=== PATIENT | female | born 1965 | race Two or more races ===

== ENCOUNTER 2021-10-27 01:06 | Emergency (ER) | payer SELFPAY ==
[2021-10-27 01:11] VITALS: BP 139/79; PULSE 77; RESP 18; TEMP 36.3; O2SAT 100
--- NOTE | 2021-10-27 02:58 | PC.NURSE ---
Patient and her son state she is in so much pain, that she wants to go home. Patient informed of the risks of leaving. Patient a/ox4. Bleeding controlled to wound. Patient requesting medications in waiting room, and wait time dai hewitt is available. Patient informed that unable to give medications in the waiting room and that a wait time is also unable to be given, that the department is full at this time but they are working as fast as they can. Patient and son state they will leave. Patient taken home by her son.
== END 2021-10-27 04:16 | disposition left against medical advice (07) ==
LOC: ANHED 03:26
DX: S99.922A Unspecified injury of left foot, initial encounter (principal)
CPT/HCPCS: 99199

== ENCOUNTER 2022-10-18 09:21 | Emergency (ER) | payer OTHER, SELFPAY ==
[2022-10-18] VITALS (17 sets, daily range): BP systolic 142–147; BP diastolic 83–93; PULSE 64–84; RESP 13–29; TEMP 36.7; O2SAT 98–99
--- NOTE | ~2022-10-18 | CT_ITS ---
EXAMINATION: CT brain wo con DATE: 10/18/2022 12:48 INDICATION: Dizziness TECHNIQUE: Computed tomography (CT) of the head was performed without intravenous contrast. Sagittal and coronal reconstructions were performed. The mA was adjusted according to patient size. Iterative reconstruction technique was employed. The dose-length product was 529.67 mGy-cm. COMPARISON: None FINDINGS: No acute intracranial hemorrhage, acute infarction or abnormal extra axial fluid collection. Ventricl es are normal and symmetric. No mass/mass effect. Moderate mucosal thickening in the paranasal sinuse s. There is also a left otomastoiditis effusion. The orbits are normal. IMPRESSION: 1. No acute intracranial process. 2. Prominent sinus disease and left otomastoiditis effusion. Reviewed, dictated and finalized at location A. CAR OPERATOR
--- NOTE | 2022-10-18 09:28 | ED.GENADULT ---
HPI - General Adult General Chief complaint: Weakness Stated complaint: nausea & weakness Time Seen by Provider: 10/18/22 09:25 History of Present Illness HPI narrative: 56-year-old Mike speaking female with no medical problems presents to the emergency room for evaluation of generalized weakness. Patient was accompanied by her brother who is the guncotton packer. According to family, patient has been experiencing nausea and vomiting for 2 days and accompanied with a generalized weakness. Also reports a headache and body aches. Prior to this patient been experiencing intermittent fevers, cough, sinus congestion and body aches, stating that she presumably had influenza. Patient denies any abdominal pain or diarrhea. Patient presented by EMS, where a liter of fluids and Zofran were administered. Patient denies shortness of breath, difficulty breathing, chest pain, palpitations. Related Data Allergies Allergy/AdvReac Type Severity Reaction Status Date / Time No Known Allergies Allergy Verified 10/27/21 01:13 Review of Systems Review of Systems: CONSTITUTIONAL: Denies fever, chills, or sweats. EYES: Denies visual changes, redness, or discharge. ENT: Denies rhinorrhea, congestion, sore throat, or otalgia. CARDIOVASCULAR: Denies chest pain, palpitations, or edema. RESPIRATORY: Denies cough or dyspnea. GASTROINTESTINAL: Reports nausea vomiting GENITOURINARY: Denies dysuria or hematuria. SKIN: Denies rash or itching. MUSCULOSKELETAL: Denies back pain, joint pain, or myalgia. NEUROLOGIC: Denies headache, numbness, dizziness, or weakness. PSYCHIATRIC: Denies anxiety or depression. Exam Narrative: GENERAL: ill-appearing, well-nourished, no physical limitations HEAD: Normocephalic, atraumatic. EYES: Conjunctivae normal, PERRLA and EOMI. CHEST: Clear to auscultation. No respiratory distress. No wheezes rales or rhonchi. HEART: Regular rate and rhythm. No murmur heard. Normal peripheral pulses. ABDOMEN: Soft, nontender, nondistended, normal active bowel sounds. BACK: No CVA tenderness EXTREMITIES: Normal range of motion. No edema. No clubbing or cyanosis SKIN: Warm, dry, no rash. No noted wounds NEURO: No focal deficits. Alert and oriented x3. MAEW. CN's II-XI intact bilaterally, normal gait PSYCH: Cooperative. Normal mood and affect. Course Vital Signs Vital signs: Vital Signs Temperature 36.7 C 10/18/22 09:21 Pulse Rate 74 10/18/22 09:21 Respiratory Rate 16 10/18/22 09:21 Blood Pressure 145/93 H 10/18/22 09:21 Pulse Oximetry 99 10/18/22 09:21 Oxygen Delivery Room Air 10/18/22 09:21 Temperature 36.7 C 10/18/22 09:21 Pulse Rate 69 10/18/22 09:31 Respiratory Rate 16 10/18/22 09:21 Blood Pressure 145/93 H 10/18/22 09:21 Pulse Oximetry 99 10/18/22 09:21 Oxygen Delivery Room Air 10/18/22 09:21 Medical Decision Making MDM Narrative Medical decision making narrative: 56-year-old female Mike speaking patient who is accompanied by her Uzbek-speaking family presented with 2 days of nausea and vomiting and generalized weakness. Nausea vomiting likely due to a secondary benign cause. Patient did not have any abdominal pain and was having regular bowel movements so SBO is unlikely. Lab work showed no signs of diabetes, electrolytes were normal with no anion gap. Based on history and exam, low suspicion for pancreatitis, appendicitis or any biliary pathology. Patient was given Zofran and a liter of fluids. Patient will be discharged with Zofran. Vital Signs Vital Signs: Vital Signs Temperature 36.7 C 10/18/22 09:21 Pulse Rate 74 10/18/22 09:21 Respiratory Rate 16 10/18/22 09:21 Blood Pressure 145/93 H 10/18/22 09:21 Pulse Oximetry 99 10/18/22 09:21 Oxygen Delivery Room Air 10/18/22 09:21 Temperature 36.7 C 10/18/22 09:21 Pulse Rate 69 10/18/22 09:31 Respiratory Rate 16 10/18/22 09:21 Blood Pressure 145/93 H 10/18/22 09:21 Pulse Oximetry 99 10/18/22
[2022-10-18] MEDS: PANTOPRAZOLE SODIUM IV 40 MG VIAL IV PUSH (09:37)
--- NOTE | 2022-10-18 09:43 | PC.NURSE ---
ems iniated lr continues infusing wide open without difficulty
[2022-10-18 10:00] LABS: Basophils Percent Auto 0.4 % (0.2-1.2); Eosinophils Absolute Auto 0.2 K/mm3 (0-0.3); Eosinophils Percent Auto 2.2 % (0-4.4); Hematocrit 36.6 % (37.0-47.0); Hemoglobin 11.3 g/dL (12.0-15.0); Immature Granulocyte Absolute 0.04 K/mm3 (0.00-0.031); Immature Granulocyte Percent A 0.4 % (0-0.5); Lymphocytes Percent Auto 21.2 % (18.3-44.2); Mean Corpuscular HGB Conc 30.9 g/dl (32-36); Mean Corpuscular Hemoglobin 19.3 pg (26-34); Mean Corpuscular Volume 62.7 fl (80-100); Monocytes Absolute Auto 0.6 K/mm3 (0.1-0.6); Monocytes Percent Auto 6.1 % (2.6-8.5); Neutrophils Absolute Auto 6.6 K/mm3 (1.3-6.7); Neutrophils Percent Auto 69.7 % (45.5-73.1); Platelet Count Result 272 k/mm3 (150-375); Red Blood Count 5.84 M/mm3 (4.2-5.4); Red Cell Distribution Width 17.9 % (11.5-14.5); White Blood Count 9.4 K/mm3 (4.5-10.0)
[2022-10-18] MEDS: KETOROLAC 30 MG/ML VIAL (*BKC) IV PUSH (10:09)
[2022-10-18 10:14] LABS: Alanine Aminotransferase 22 U/L (6-35); Albumin Level 4.5 g/dL (3.5-5.1); Alkaline Phosphatase 73 U/L (38-126); Anion Gap 7 mmol/L (8-16); Aspartate Amino Transferase 22 U/L (14-36); Bilirubin,Total 0.6 mg/dL (0.2-1.3); Blood Urea Nitrogen 12 mg/dL (7-17); Calcium 8.6 mg/dL (8.4-10.2); Carbon Dioxide 26 mmol/L (22-30); Chloride 107 mmol/L (98-107); Estimated Glomerular Filt Rate > 60; Glucose 107 mg/dL (65-110); Lactic Acid Reflex 1.6 mmol/L (0.7-2.0); Lipase 65 U/L (23-300); Potassium 3.7 mmol/L (3.4-5.0); Sodium 140 mmol/L (137-145)
[2022-10-18 10:32] LABS: Influenza A QL RT-PCR Negative (Negative); Influenza B QL RT-PCR Negative (Negative); RSV RNA, RT-PCR Negative (Negative); SARS-CoV-2 RNA PCR Negative
--- NOTE | 2022-10-18 10:45 | PC.NURSE ---
pt ambulatory to bathroom with slightly unsteady gait.
[2022-10-18 10:59] LABS: Appearance Urine Clear (Clear); Bilirubin Urine Negative (Negative); Blood Urine Negative (Negative); Color Urine Yellow (Yellow); Glucose Urine UA Negative (Negative); Ketones Urine Negative (Negative); Leukocyte Esterase Ur Negative LEU/UL (Negative); Nitrate Urine Negative (Negative); Protein Urine 2+ mg/dL (Negative); Specific Grav Ur 1.015 (1.001-1.035); Urobilinogen Urine 0.2 mg/dL (<2.0); pH Urine 7.5 (5.0-9.0)
[2022-10-18 11:00] LABS: Add Urine Microscopic? YES; Bacteria Urine Trace /hpf; Mucus Urine Rare /lpf; RBC Urine 0-2 /hpf (0-2); Squamous Epithelial Cell Urine Rare /hpf (Few); WBC Urine 0-3 /hpf
[2022-10-18] MEDS: SODIUM CHLORIDE 0.9% IV 1,000 ML 999 ML IV CONT (11:17)
--- NOTE | 2022-10-18 12:00 | PC.NURSE ---
pt ambulatory with minimal assist to bathroom. pt continues to c/o dizziness though gait is much improved.
--- NOTE | 2022-10-18 12:04 | ECG_ITS ---
Measurements Intervals [place] Rate: 68 P: 41 TN: 150 QRS: 64 QRSD: 98 T: 41 QT: 414 QTc: 441 Interpretive Statements SINUS RHYTHM MINOR RIGHT VENTRICULAR CONDUCTION DELAY [RSR (QR) IN V1/V2] WITHIN NORMAL LIMITS NO PREVIOUS ECG AVAILABLE FOR COMPARISON Electronically Signed On 10-19-2022 8:16:18 RING ROLLING MACHINE OPERATOR by Andrea Davila M.D.
[2022-10-18] MEDS: MECLIZINE HCL 25 MG TABLET PO (12:17)
[2022-10-18 12:34] LABS: Troponin I < 0.012 ng/mL (0.000-0.034)
== END 2022-10-18 13:19 | disposition home or self-care (01) ==
PROVIDERS: Emergency Provider Nurse Practitioner Family
DX: R11.10 Vomiting, unspecified (principal); R53.1 Weakness; Z20.822 Contact with and (suspected) exposure to COVID-19
CPT/HCPCS: 36415; 70450; 80053; 81001; 83605; 83690; 84484; 85025; 87637; 93005; 96361; 96374; 96375; 99284; A9270; C9113; J1885; J7030

== ENCOUNTER 2024-03-24 03:27 | Observation (INO) | payer OTHER, SELFPAY ==
[2024-03-24] VITALS (12 sets, daily range): BP systolic 104–175; BP diastolic 62–91; PULSE 62–96; RESP 14–16; TEMP 36.3–37.2; O2SAT 97–99; BMI 26.8
--- NOTE | ~2024-03-24 | MR_ITS ---
MRI of the cervical spine Clinical History: Pain Technique: Axial T2-weighted and gradient images, and sagittal T1-weighted, T2-weighted, and STIR niko ges were acquired. Findings: There is no fracture or subluxation of the cervical spine. Vertebral bodies maintain normal height and alignment. No bone marrow signal abnormality seen. At C2-C3, there is no disc bulge or herniation. No spinal canal stenosis, cord compression, or neural foraminal narrowing. At C3-C4, there is minimal disc osteophyte complex, with minimal flattening the ventral cord. Bilater al neural foramina are preserved. At C4-C5, there is mild disc osteophyte complex, with mild canal stenosis and minimal flattening of t he ventral cord. Bilateral neural foramina are preserved. At C5-C6, there is moderate degenerative disc narrowing. There is mild disc osteophyte complex, with mild canal stenosis but no ly cord compression. There is bilateral neural foraminal narrowing. At C6-C7, there is minimal disc bulge. No ly canal stenosis or cord compression. There is bilatera l neural foraminal narrowing. No abnormal signal seen in the spinal cord. Paravertebral soft tissues are unremarkable. Impression: Mild to moderate degenerative spondylosis, as detailed above. Reviewed, dictated and finalized at location . Impression: Mild to moderate degenerative spondylosis, as detailed above.
--- NOTE | ~2024-03-24 | XR_ITS ---
Portable chest x-ray Comparison: None Clinical History: Weakness Findings: Lungs are clear, without focal consolidation or pleural effusion. Cardiomediastinal silho uette is unremarkable. Bones and soft tissues are unremarkable. Impression: Normal chest. Reviewed, dictated and finalized at location M. Impression: Normal chest.
--- NOTE | ~2024-03-24 | CT_ITS ---
CT ANGIOGRAM NECK AND HEAD History: Left-sided weakness. Technique: Serial spiral axial images through the head and neck were obtained during arterial phase I V injection of 100 cc of Omnipaque 350. 3-D postprocessing and MIP images were then reconstructed on the remote workstation. Dose reduction technique was used on this scan by utilizing automated exposur e control and iterative reconstruction technique. The dose-length product (DLP) was 963.44 mGy-cm. CTA neck findings: Bilateral vertebral arteries are patent. Bilateral common carotid, internal carot id, and external carotid arteries are patent. No large vessel occlusion. No stenosis. No aneurysm. Th e proximal right internal carotid artery demonstrates 0% stenosis relative to the normal distal arter y lumen diameter. The proximal left internal carotid artery demonstrates 0% stenosis relative to the normal distal artery lumen diameter. There is enlargement of the right thyroid lobe. CTA head findings: Distal vertebral arteries, basilar artery, and posterior cervical arteries are pat ent. Distal internal carotid arteries, middle cerebral arteries, and anterior cerebral arteries are p atent. No large vessel occlusion. No stenosis or aneurysm. Impression: No significant vascular abnormality. Enlarged right thyroid lobe nodule. Consider follow-up thyroid ultrasound to assess for nodule. Reviewed, dictated and finalized at location . Impression: No significant vascular abnormality. Enlarged right thyroid lobe nodule. Consider follow-up thyroid ultrasound to as sess for nodule.
--- NOTE | ~2024-03-24 | MR_ITS ---
MRI of the thoracic spine Clinical History: Pain Technique: Axial T2-weighted and gradient images, and sagittal T1-weighted, T2-weighted, and STIR niko ges were acquired. Findings: There is no fracture or subluxation of the thoracic spine. Vertebral bodies maintain normal height and alignment. No bone marrow signal abnormality seen. No disc bulge or herniation seen at any thoracic level. No spinal canal stenosis or cord compression seen. No epidural mass or collection seen. No abnormal signal seen in the spinal cord. Paravertebral soft tissues are unremarkable. Impression: Unremarkable exam. Reviewed, dictated and finalized at location M. Impression: Unremarkable exam.
--- NOTE | ~2024-03-24 | MR_ITS ---
MRI of the lumbar spine Clinical History: Pain Technique: Axial T2-weighted images, and sagittal T1-weighted, T2-weighted, and T2 fat-sat images wer e acquired. Findings: There is straightening of the normal lumbar lordosis. No fracture or subluxation evident. N o suspicious bone marrow signal abnormality seen. At L1-L2 and L2-L3, there is no significant disc bulge or rotation. There is moderate facet arthropat hy levels. No spinal canal stenosis or neural foraminal narrowing at these levels. At L3-L4, there is minimal disc bulge and moderate facet arthropathy. No central canal stenosis or ne ural foraminal narrowing. At L4-L5, there is mild diffuse disc bulge with tiny annular fissure, and moderate to advanced facet arthropathy. No central canal stenosis. There is severe right neural foraminal narrowing. Left neural foramen preserved. At L5-S1, there is mild disc bulge with mild to moderate facet arthropathy. No central canal stenosis . There is mild bilateral neural foraminal narrowing. Paravertebral soft tissues are unremarkable. Impression: Mild degenerative spondylosis overall, worst at L4-L5 with severe right neural foraminal narrowing at this level. Reviewed, dictated and finalized at [facility]. Impression: Mild degenerative spondylosis overall, worst at L4-L5 with severe right neural foraminal narrowing at this level.
--- NOTE | ~2024-03-24 | MR_ITS ---
MRI of the brain Clinical History: Strokelike symptoms Technique: Axial and sagittal T1-weighted images were acquired. These were followed by axial T2-weigh royce, diffusion weighted, gradient, and FLAIR images. Findings: No abnormal signal seen in the brain parenchyma. No acute infarct, intracranial hemorrhage, or mass lesion. Ventricles and some arachnoid spaces are unremarkable. Orbits are unremarkable. There is left mastoid effusion. Right mastoid air cells are clear. Paranasal sinuses are clear. Major intracranial flow vo ids are grossly intact. Sagittal midline structures are intact. IMPRESSION: No acute infarct, intracranial hemorrhage, or mass lesion. Left mastoid effusion. Reviewed, dictated and finalized at location .
--- NOTE | ~2024-03-24 | CT_ITS ---
Non-contrast Head CT History: Left-sided weakness COMPARISON: 10/18/2022 Technique: Axial non-contrast imaging of the brain was performed. Dose reduction technique was used on this scan by utilizing automated exposure control and iterative reconstruction technique. The dose -length product (DLP) was 529.67 mGy-cm. Findings: There is no evidence of intracranial hemorrhage, mass lesion, or acute infarct. Brain par enchyma appears normal. The ventricles and subarachnoid spaces are normal in size. The calvarium ap pears normal. The visualized paranasal sinuses and mastoid air cells are clear. Impression: No significant abnormality seen. Reviewed, dictated and finalized at location . Impression: No significant abnormality seen.
--- NOTE | ~2024-03-24 | US_ITS ---
EXAMINATION: US venous doppler UE DATE: 03/24/2024 20:22 INDICATION: Left upper limb pain. TECHNIQUE: Grayscale ultrasound images without and with compression and Doppler ultrasound images of the left upper extremity veins were obtained. COMPARISON: None. FINDINGS: The visualized portions of the left internal jugular vein, subclavian vein, axillary vein, brachial v eins, basilic vein, cephalic vein, radial vein, and ulnar vein are patent. IMPRESSION: 1. No deep venous thrombosis. Reviewed, dictated and finalized at location E.
--- NOTE | 2024-03-24 03:47 | ECG_ITS ---
SEE SCANNED COPY FOR CONFIRMED REPORT MTDD
[2024-03-24 04:10] LABS: Basophils Percent Auto 0.4 % (0.2-1.2); Eosinophils Absolute Auto 0.2 K/mm3 (0-0.3); Eosinophils Percent Auto 2.4 % (0-4.4); Hematocrit 38.3 % (37.0-47.0); Hemoglobin 11.7 g/dL (12.0-15.0); Immature Granulocyte Absolute 0.01 K/mm3 (0.00-0.031); Immature Granulocyte Percent A 0.1 % (0-0.5); Lymphocytes Absolute Auto 2.19 K/mm3 (0.9-3.2); Lymphocytes Percent Auto 30.7 % (18.3-44.2); Mean Corpuscular HGB Conc 30.5 g/dl (32-36); Mean Corpuscular Hemoglobin 19.1 pg (26-34); Mean Corpuscular Volume 62.7 fl (80-100); Monocytes Absolute Auto 0.6 K/mm3 (0.1-0.6); Monocytes Percent Auto 8.1 % (2.6-8.5); Neutrophils Absolute Auto 4.2 K/mm3 (1.3-6.7); Neutrophils Percent Auto 58.3 % (45.5-73.1); Platelet Count Result 251 k/mm3 (150-375); Red Blood Count 6.11 M/mm3 (4.2-5.4); Red Cell Distribution Width 18.2 % (11.5-14.5); White Blood Count 7.1 K/mm3 (4.5-10.0)
[2024-03-24 04:19] LABS: INR 1.1; Prothrombin Time 14.7 Seconds (11.1-14.7)
[2024-03-24 04:20] LABS: Partial Thromboplastin Time 34.7 Seconds (22.3-36.8)
[2024-03-24 04:22] LABS: Ethanol < 10 mg/dL (<10); Lactic Acid Reflex 0.9 mmol/L (0.7-2.0)
[2024-03-24 04:29] LABS: Platelet Estimate Adequate (Adequate)
[2024-03-24 04:30] LABS: Anisocytosis 1+; Microcytosis 1+ (NORMAL)
[2024-03-24] MEDS: SODIUM CHLORIDE 0.9% IV 1,000 ML 999 ML IV CONT (04:30)
[2024-03-24 04:31] LABS: Estimated CRCL calculation 72 ml/min; Estimated Glomerular Filt Rate > 60
[2024-03-24 04:31] LABS: Ovalocytes 1+; Schistocytes Rare
[2024-03-24 04:33] LABS: Alanine Aminotransferase 24 U/L (6-35); Albumin Level 4.6 g/dL (3.5-5.1); Alkaline Phosphatase 62 U/L (38-126); Anion Gap 6 mmol/L (4-12); Aspartate Amino Transferase 31 U/L (14-36); Bilirubin,Total 1.1 mg/dL (0.2-1.3); Blood Urea Nitrogen 11 mg/dL (7-17); Calcium 9.2 mg/dL (8.4-10.2); Carbon Dioxide 26 mmol/L (22-30); Chloride 106 mmol/L (98-107); Estimated CRCL calculation 83 ml/min; Estimated Glomerular Filt Rate > 60; Glucose 102 mg/dL (65-110); Magnesium 2.1 mg/dL (1.6-2.3); Potassium 3.8 mmol/L (3.4-5.0); Sodium 138 mmol/L (137-145); Troponin I < 0.012 ng/mL (0.000-0.034)
[2024-03-24 04:36] LABS: Creatine Kinase 50 U/L (30-135)
[2024-03-24 04:47] LABS: Appearance Urine Clear (Clear); Bacteria Urine 4+ /hpf; Bilirubin Urine Negative (Negative); Blood Urine Negative (Negative); Color Urine Yellow (Yellow); Glucose Urine UA Negative (Negative); Ketones Urine Negative (Negative); Leukocyte Esterase Ur 1+ LEU/UL (Negative); Nitrate Urine Positive (Negative); Non Pathogenic Casts 0-2; Protein Urine Negative (Negative); RBC Urine 0-2 /hpf (0-2); Squamous Epithelial Cell Urine None Seen /hpf (Few); Urobilinogen Urine 0.2 mg/dL (<2.0)
[2024-03-24 04:56] LABS: Add Urine Microscopic? YES
[2024-03-24 04:58] LABS: Amphetamine Screen Urine Negative (Negative); Barbiturate Screen Urine Negative (Negative); Benzodiazepines Screen Urine Negative (Negative); Cannabinoid Screen Urine Negative (Negative); Cocaine Screen Urine Negative (Negative); Methadone Screen Urine Negative (Negative); Opiate Screen Urine Negative (Negative); Phencyclidine Screen Urine Negative (Negative)
--- NOTE | 2024-03-24 05:11 | ED.GENADULT ---
HPI - General Adult General Chief complaint: Neuro Symptoms/Deficit Stated complaint: numbness Time Seen by Provider: 03/24/24 03:45 History of Present Illness HPI narrative: Patient 58-year-old female who presents emerged from with chief complaint of left arm numbness and weakness. Patient reports that she went to sleep around her try and work up her around 130 and started having spasms and pain in her left upper extremity the patient reports the area was weak as well and reported that she noticed that her right leg was weak. Patient reports she has a frontal headache reports no trauma reports no prior history of stroke symptoms. Related Data Allergies Allergy/AdvReac Type Severity Reaction Status Date / Time No Known Allergies Allergy Verified 10/27/21 01:13 Review of Systems Review of Systems: A 10 system review of systems was completed on the patient and is negative except for what is stated in the HPI. Nursing and ancillary documentation was reviewed. Exam Narrative: GENERAL: Well-appearing, well-nourished, and in no acute distress. HEAD: Normocephalic, atraumatic. EYES: PERRLA and EOMI. ENT: Nares clear, no rhinorrhea or epistaxis. Mucous membranes moist. NECK: Supple. CHEST: Clear to auscultation. No respiratory distress. HEART: Regular rate and rhythm. No murmur heard. Normal peripheral pulses. ABDOMEN: Soft, nontender, nondistended, normal active bowel sounds. EXTREMITIES: Normal range of motion. No edema. SKIN: Warm, dry, no rash. NEURO: Patient will limitedly move the left upper extremity this appears to be secondary to pain patient does have some mild weakness in the left lower extremity but is still able lift the extremity off the stretcher due to gravity. Alert and oriented x3. PSYCH: Normal mood and affect. Course Vital Signs Vital signs: Vital Signs Temperature 37.2 C 03/24/24 03:28 Pulse Rate 65 03/24/24 03:28 Respiratory Rate 14 03/24/24 03:28 Blood Pressure 151/85 H 03/24/24 03:28 Pulse Oximetry 99 03/24/24 03:28 Oxygen Delivery Room Air 03/24/24 03:28 Temperature 37.2 C 03/24/24 03:28 Pulse Rate 62 03/24/24 04:39 Respiratory Rate 16 03/24/24 04:39 Blood Pressure 165/88 H 03/24/24 04:39 Pulse Oximetry 99 03/24/24 04:39 Oxygen Delivery Room Air 03/24/24 03:28 Medical Decision Making MDM Narrative Medical decision making narrative: Differential diagnosis includes CVA, large vessel occlusion, atypical migraine, musculoskeletal complaints, CT head showed no evidence of acute hemorrhage. CTA head neck is showed no evidence of large vessel occlusion. The patient would not be considered a thrombolytic candidate as the patient arrived at the essentially [address] head did not return until after the 4-1/2 hour window had passed for tPA. Patient shows no signs of large vessel occlusion does not meet criteria for transfer to a regional stroke center with embolic care availability case was discussed with the hospitalist for admission locally Vital Signs Vital Signs: Vital Signs Temperature 37.2 C 03/24/24 03:28 Pulse Rate 65 03/24/24 03:28 Respiratory Rate 14 03/24/24 03:28 Blood Pressure 151/85 H 03/24/24 03:28 Pulse Oximetry 99 03/24/24 03:28 Oxygen Delivery Room Air 03/24/24 03:28 Temperature 37.2 C 03/24/24 03:28 Pulse Rate 62 03/24/24 04:39 Respiratory Rate 16 03/24/24 04:39 Blood Pressure 165/88 H 03/24/24 04:39 Pulse Oximetry 99 03/24/24 04:39 Oxygen Delivery Room Air 03/24/24 03:28 Lab Data 03/24/24 03:52 03/24/24 04:02 Labs: Lab Results 03/24/24 03/24/24 03/24/24 Range/Units 03:52 04:02 04:33 WBC 7.1 (4.5-10.0) K/mm3 RBC 6.11 H (4.2-5.4) M/mm3 Hgb 11.7 L (12.0-15.0) g/dL Hct 38.3 (37.0-47.0) % MCV 62.7 L (80-100) fl MCH 19.1 L (26-34) pg MCHC 30.5 L (32-36) g/dl RDW 18.2 H (11.5-14.5) % P
[2024-03-24 06:01] LABS: Glucose Point of Care 113 mg/dl (65-105)
--- NOTE | 2024-03-24 07:07 | ADMGEN ---
This patient, Robel Alvarez, was admitted to [facility] Room 325-01. Patient/family oriented to hospital policies and general routines including ID bracelet, bed and alarms, visiting hours, pain management, procedures, bathroom and other care routines, personal items, smoking policy, room service/diet, and visiting hours. Information on how to activate the Rapid Response Team has been discussed. Patient/Family are encouraged to report perceived risks to care and to ask questions if they do not understand what they are told or what they should do.
--- NOTE | 2024-03-24 07:32 | ECG_ITS ---
SEE SCANNED COPY FOR CONFIRMED REPORT MTDD
[2024-03-24] MEDS: MORPHINE SULFATE (*CRX) 2 MG/ML INJ IV PUSH (07:42)
[2024-03-24 08:47] LABS: Cholesterol 183 mg/dL (0-200); Triglycerides 161 mg/dL (<150)
[2024-03-24 08:48] LABS: NT Pro B Type Natriuretic Pept 4770 pg/mL (19.9-100)
[2024-03-24 08:50] LABS: Hemoglobin A1C 5.1 % (<5.7)
[2024-03-24 08:52] LABS: Troponin I < 0.012 ng/mL (0.000-0.034)
[2024-03-24] MEDS: cefTRIAXone 2 GM/NS 100 ML 2 GM/100 ML BAG IVPB (09:11)
--- NOTE | 2024-03-24 09:33 | PM.IMHP ---
H&P: HPI History of Present Illness Date/Time: 03/24/24 09:33 Chief Complaint: Left arm weakness, left arm pain, chest pain Narrative: His is a pleasant 58-year-old Mike speaking female with a past medical history of hypertension who presented to the ER over night with complaints left-sided weakness, decreased sensation to left upper arm, and chest pain. The patient's son is at the bedside and helps to supplement her history. According to the patient, at midnight she started to experience some left-sided facial numbness, left arm numbness and weakness with limited function, left arm pain, and left leg weakness. She thought her left side was numb from sleeping on it. When her symptoms did improve after couple of hours she notified her son with whom she lives and they brought her to the hospital. She did not experience vision changes, slurred speech, or confusion. She also complains of left sided chest pain which is reproducible with palpation. She describes the chest pain as intermittently sharp and shooting, traveling to her left arm. She also reports a headache and chronic low back pain. She states sometimes when she is using her left hand to drive or hold an object she has numbness that occurs. Her PCP had prescribed a brace which she wears at night which she says helps. She vaguely remembers her PCP saying that she had a clot in the left arm and they would remove it surgically if the brace didn't work? Suspect she means carpal tunnel release. She did say that she suffered a fall about one week ago. She was walking on asphalt with heels and slipped causing her to land on her right knee. She says the pain related to that injury has since resolved. She also reports urinary frequency and urgency without dysuria. She denies dizziness, shortness of breath, abdominal pain, nausea, vomiting, diarrhea, constipation, rash, or lesion. At the time of my assessment she is still having intermittent chest pain, left arm with limited movement and numbness, left leg weakness, left sided facial droop, and headache. In the ED labs were significant for microcytic, hypochromic anemia with hemoglobin of 11.7, BNP 4700, TSH 5.150, and UA concerning for UTI. CT head showed no evidence of acute hemorrhage. CTA head neck with no evidence of large vessel occlusion. Patient was admitted in this setting with consult for Neurology and further workup possible TIA. 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, lives with her son and his and daughter Smoking status: Never smoker Alcohol intake: never Substance use: never Do You Feel Safe in your Home?: Yes Lack of Transportation: No Lack of Food: Never True Current Housing: I Have Housing Concerned About Future Housing: No Difficulty Paying Gas/Electric Bills: No Difficulty Paying for Meds: No Currently Unemployed: No Education: Grade School Difficulty w/ Childcare or Family Care: No Living arrangements: with family Occupation/Education: occupation Additional occupation/education comments: self employed Spiritual care concerns: No Meds Home Medications and Allergies Home Medications Medication Instructions Recorded Confirmed Type No Home Medications 03/24/24 03/24/24 History Allergies Allergy/AdvReac Type Severity Reaction Status Date / Time No Known Allergies Allergy Verified 10/27/21 01:13 Vital Signs Vital Signs
--- NOTE | 2024-03-24 10:15 | WPDNEURCNPN ---
Assessment and Plan Assessment and plan (1) Left elbow pain: Code(s): M25.522 - Pain in left elbow Status: Acute (2) Left arm numbness: Code(s): R20.0 - Anesthesia of skin Status: Acute (3) Left leg numbness: Code(s): R20.0 - Anesthesia of skin Status: Acute Plan Ms. Alvarez is a 58 year old female presenting due to LUE numbness/weakness in the setting of pain. MRI brain was negative for acute stroke. Suspect musculoskeletal etiology. Will obtain MRI cervical spine and lumbar spine to evaluate for radiculopathy. She is quite flat on exam and is refusing to eat or drink so there may also be a functional component to her symptoms as well. Recommend treating pain so that we can get a better sense of whether there is true weakness or if there is just limitation due to pain. If spine imaging is unrevealing, recommend evaluation for musculoskeletal cause of pain. Would also recommend EMG/NCS of all four extremities as outpatient. Consult date: 03/24/24 Reason for consult: Left upper extremity numbness/weakness HPI: Robel Alvarez is a 58 year old female with no significant past medical history presenting for evaluation of left arm numbness/and weakness. On day prior to admission, patient went to sleep, and when she woke up around 130 AM, she noted spasms/pain in her LUE and was reporting that it was weak as well. In the ER, she had some limitation in range of motion with moving the LUE, which seemed like it was related to pain. Otherwise there were no other deficits. BP ranged from 140-170s systolic. EKG showed sinus rhythm. CT head was unrevealing. CTA brain/carotid was negative and MRI brain did not show any evidence of stroke. Patient is complaining of quite a bit of pain in the left arm and left leg. She reports the pain as mostly in the left elbow. The numbness is from the left elbow down to the hand. She feels that the entire left leg is numb. She denies any shooting pain down her back or buttocks to her leg, although she has chronic lower back pain. She reportedly has had EMG/NCS done about three months ago and was told that she may have carpal tunnel syndrome in the left hand and was told to wear a wrist brace, which did help her symptoms. However the symptoms in the LUE this time are different. Patient has had quite a bit of stress lately due to some family matters. No history of physical abuse. She was tearful during evaluation and brought up the of her who in Nov 2022. Since these symptoms started she has been walking with assistance. No bowel or bladder incontinence. She has had to urinate more frequently in the past day but she was found to have a UTI. Review of Systems Review of Systems: All systems reviewed & are unremarkable except as noted in HPI and below PMFSH Social History Social History Smoking status: Never smoker Alcohol intake: never Substance use: never Do You Feel Safe in your Home?: Yes Lack of Transportation: No Lack of Food: Never True Current Housing: I Have Housing Concerned About Future Housing: No Difficulty Paying Gas/Electric Bills: No Difficulty Paying for Meds: No Currently Unemployed: No Education: Grade School Difficulty w/ Childcare or Family Care: No Spiritual care concerns: No Meds Home Medications and Allergies Home Medications Medication Instructions Recorded Confirmed Type No Home Medications 03/24/24 03/24/24 History Allergies Allergy/AdvReac Type Severity Reaction Status Date / Time No Known Allergies Allergy Verified 10/27/21 01:13 Vital Signs Vital Signs - 24 hr 03/24/24 03:28 03/24/24 03:48 03/24/24 03:48 Temperature 37.2 C Pulse Rate 65 66 Respiratory Rate 14 Blood Pressure 151/85 H Pulse Oximetry 99 99 Oxygen Delivery Room Air 03/24/24 04:39 03/24/24 05:54 03/24/24 07:30 Temperature 36.3 C
[2024-03-24 11:34] LABS: Troponin I < 0.012 ng/mL (0.000-0.034)
[2024-03-24] MEDS: ACETAMINOPHEN 325 MG TABLET 650 MG PO ×2 (14:45→21:11)
[2024-03-24] MEDS: GABAPENTIN 300 MG CAPSULE PO (17:56)
[2024-03-24] MEDS: oxyCODONE/ACETAMINOPHEN (*CRX) 5-325 MG TABLET 1 TABLET PO (17:56)
[2024-03-24 18:21] LABS: Iron 93 ug/dL (37-170)
[2024-03-24 18:28] LABS: Folic Acid 8.4 ng/mL (2.76->20)
[2024-03-24 18:31] LABS: Percent Iron Saturation 29 % (20-50)
[2024-03-24 22:33] LABS: HDL Direct 35 mg/dL
[2024-03-24 22:39] LABS: LDL Cholesterol Direct < 30 mg/dL
[2024-03-25] VITALS: PULSE 57
[2024-03-25 04:00] VITALS: PULSE 45
[2024-03-25 04:32] VITALS: BP 126/65; PULSE 70; TEMP 36.7; O2SAT 98
--- NOTE | 2024-03-25 06:00 | ECHO_ITS ---
Patient Info Name: Robel Alvarez Age: 58 years : 1965 Gender: Female Ht: 63 in Wt: 151 lbs BSA: 1.76 m2 HR: 70 bpm BP: 126 / 65 mmHg Technical Quality: Good Exam Date: 03/25/2024 10:58 AM Exam Location: Echo Lab Patient Status: Outpatient Admit Date: 03/24/2024 Staff Ordering Physician: Efra Beasley MD Dry [employer] Cabinet Attendant: Cheng Claudio RDCS Attending Provider: Ghislaine Lackey MD Referring Physician: Ramos SALVADOR; Exam Type: CA echo doppler color flow Study Info Indications - left-side weakness Complete two-dimensional, color flow and Doppler transthoracic echocardiogram is performed. Summary 1. Complete two-dimensional, color flow and Doppler transthoracic echocardiogram is performed. 2. Left ventricular chamber dimension is normal. 3. Left ventricular systolic function is normal, estimated at 65-70%. 4. The left ventricular diastolic function is grade I diastolic dysfunction. 5. E/e' 10 is mildly elevated. 6. No pulmonary hypertension, estimated pulmonary arterial systolic pressure is 12 mmHg. Left Ventricle E/e' 10 is mildly elevated. Left ventricular chamber dimension is normal. Left ventricular systolic function is normal, estimated at 65-70%. The left ventricular diastolic function is grade I diastolic dysfunction. Right Ventricle Right ventricular systolic function is normal and with normal TAPSE 1.9 cm. Right ventricular chamber dimension is normal. Left Atria Left atrial chamber dimension is normal. Right Atria Right atrial chamber dimension is normal. Aortic Valve The aortic valve is trileaflet. There is no aortic valve stenosis. There is no aortic valve regurgitation. Pulmonic Valve There is no pulmonic regurgitation. Mitral Valve There is no mitral valve stenosis. There is no mitral valve regurgitation. Tricuspid Valve There is no tricuspid valve regurgitation. No pulmonary hypertension, estimated pulmonary arterial systolic pressure is 12 mmHg. Pericardium/Pleural There is no pericardial effusion. Inferior Vena Cava Normal inferior vena cava with >50% collapse upon inspiration consistent with normal right atrial pressure, 5 mmHg. Aorta The aortic root size at the sinus of Valsalva is normal. Left Ventricular Outflow Tract Name Value Normal LVOT 2D LVOT Diameter 1.8 cm LVOT Doppler LVOT Peak Gradient 6 mmHg LVOT Mean Gradient 3 mmHg LVOT VTI 23 cm LVOT VTI/AV VTI Ratio 0.9 LVOT Stroke Volume 59 ml LVOT CO 4.5 l/min LVOT CI 2.5 l/min/m2 Pulmonic Valve Name Value Normal PV Doppler PV Peak Gradient 3 mmHg PV Regurgitation Doppler OH Peak End Diastolic Velocity
[2024-03-25 06:35] LABS: T4 Thyroxine 6.98 ug/dL (5.53-11.0)
[2024-03-25 08:00] VITALS: PULSE 68
--- NOTE | 2024-03-25 09:00 | P.PNIM_ITS ---
Progress Note: A&P Assessment and Plan (1) Left arm numbness: Code(s): R20.0 - Anesthesia of skin Status: Acute Assessment and Plan: Following plan for number 1,2,3 * Head/neck CTA negative for vascular abnormality * Brain MRI negative for stoke * NIH 11 scoring for motor drift, facial palsy, partial gaze palsy, limb ataxia, and decreased sensation. * Unclear if limitations are from pain alone * Will obtain MRI of cervical, thoracic, and lumbar spine * Patient reports symptoms for carpal tunnel syndrome that improve with left hand brace. Patient mentions a clot that needs surgery but suspect she means surgery for carpal tunnel release. Given the unclear etiology of her pain will go ahead and rule out DVT to left upper extremity as she does have some swelling. * TSH, lipid panel, hemoglobin A1C pending * Start on oxy 5 mg prn q 4 for pain, Flexeril TID prn, and gabapentin 300 mg TID. * Neurology was consulted, rec's appreciated 03/25: * Patient is found to have a severe vitamin B 12 deficiency which likely explains her myriad of symptoms. * Will start vitamin B12 1000 mcg IM now as well as oral replacement 2500 mcg daily * Suspect related to her vegetarian diet * Intrinsic factor pending * MRI of cervical spine, thoracic, and lumbar spine pending to rule fracture, compression etiology component * Pain control with oxycodone prn q 4 hours (2) Left arm pain: Code(s): M79.602 - Pain in left arm Status: Acute (3) Left-sided weakness: Code(s): R53.1 - Weakness Status: Acute (4) Chest pain: Code(s): R07.9 - Chest pain, unspecified Status: Acute Assessment and Plan: Atypical chest pain to left chest * pain is reproducible with palpation * BNP elevated 4700 * Troponin negative x 1, serial trops ordered * EKG SR rate 63 with possible right ventricular conduction delay and non- specific T wave abnormality * ECHO ordered and pending * Blood pressures ranging 140's-150's 03/25: * ECHO pending completion for today * serial troponin negative (5) UTI (urinary tract infection): Code(s): N39.0 - Urinary tract infection, site not specified Status: Acute Assessment and Plan: U/A concerning for infection and patient has symptom of frequency and urgency. Denies dysuria. * Started on Rocephin * urine culture pending 03/25: * switched to oral Augmentin for a total of 3 days for simple cystitis. EOT 03/26 (6) Headache: Code(s): R51.9 - Headache, unspecified Status: Acute Assessment and Plan: Has chronic headaches at home. Does not take anything for migraines. Usually takes 6-8 Aleve a day. * tylenol prn for headache * [place] on NSAID abuse and daily total intake recommendations (7) Thyroid nodule: Code(s): E04.1 - Nontoxic single thyroid nodule Status: Acute Assessment and Plan: Incidental finding on ultrasound. Patient was already aware of this and states her PCP found it about 1.5 years ago. No work-up pursued by PCP. Will recommend thyroid US as an outpatient. * TSH 5.150 elevated * T3, T4 pending
--- NOTE | 2024-03-25 09:00 | PM.IMPN ---
Progress Note: A&P Assessment and Plan (1) Left arm numbness: Code(s): R20.0 - Anesthesia of skin Status: Acute Assessment and Plan: Following plan for number 1,2,3 Head/neck CTA negative for vascular abnormality Brain MRI negative for stoke NIH 11 scoring for motor drift, facial palsy, partial gaze palsy, limb ataxia, and decreased sensation. Unclear if limitations are from pain alone Will obtain MRI of cervical, thoracic, and lumbar spine Patient reports symptoms for carpal tunnel syndrome that improve with left hand brace. Patient mentions a clot that needs surgery but suspect she means surgery for carpal tunnel release. Given the unclear etiology of her pain will go ahead and rule out DVT to left upper extremity as she does have some swelling. TSH, lipid panel, hemoglobin A1C pending Start on oxy 5 mg prn q 4 for pain, Flexeril TID prn, and gabapentin 300 mg TID. Neurology was consulted, rec's appreciated 03/25: Patient is found to have a severe vitamin B 12 deficiency which likely explains her myriad of symptoms. Will start vitamin B12 1000 mcg IM now as well as oral replacement 2500 mcg daily Suspect related to her vegetarian diet Intrinsic factor pending MRI of cervical spine, thoracic, and lumbar spine pending to rule fracture, compression etiology component Pain control with oxycodone prn q 4 hours (2) Left arm pain: Code(s): M79.602 - Pain in left arm Status: Acute (3) Left-sided weakness: Code(s): R53.1 - Weakness Status: Acute (4) Chest pain: Code(s): R07.9 - Chest pain, unspecified Status: Acute Assessment and Plan: Atypical chest pain to left chest pain is reproducible with palpation BNP elevated 4700 Troponin negative x 1, serial trops ordered EKG SR rate 63 with possible right ventricular conduction delay and non-specific T wave abnormality ECHO ordered and pending Blood pressures ranging 140's-150's 03/25: ECHO pending completion for today serial troponin negative (5) UTI (urinary tract infection): Code(s): N39.0 - Urinary tract infection, site not specified Status: Acute Assessment and Plan: U/A concerning for infection and patient has symptom of frequency and urgency. Denies dysuria. Started on Rocephin urine culture pending 03/25: switched to oral Augmentin for a total of 3 days for simple cystitis. EOT 03/26 (6) Headache: Code(s): R51.9 - Headache, unspecified Status: Acute Assessment and Plan: Has chronic headaches at home. Does not take anything for migraines. Usually takes 6-8 Aleve a day. tylenol prn for headache [place] on NSAID abuse and daily total intake recommendations (7) Thyroid nodule: Code(s): E04.1 - Nontoxic single thyroid nodule Status: Acute Assessment and Plan: Incidental finding on ultrasound. Patient was already aware of this and states her PCP found it about 1.5 years ago. No work-up pursued by PCP. Will recommend thyroid US as an outpatient. TSH 5.150 elevated T3, T4 pending (8) Mastoiditis, chronic: Code(s): H70.10 - Chronic mastoiditis, unspecified ear Status: Acute Assessment and Plan: Left mastoid effusion on CT. Patient reports chronic otitis media with effusion. Denies ear pain Afebrile, no leukocytosis Subjective Date/time seen: 03/25/24 09:00 Interval history: 03/25: Review of Systems Review of Systems: All systems reviewed & are unremarkable except as noted in HPI and below Genitourinary: Genitourinary: Reports nocturia and Reports urinary urgency Exam Narrative: General: appears uncomfortable, appears stated age. HEENT: normocephalic, atraumatic. Mucous membranes moist. EOMI, PERRLA, bilateral sclera anicteric, no conjunctival injection. Neck supple without JVD, lymphadenopathy, or bruit. slight l
[2024-03-25] MEDS: GABAPENTIN 300 MG CAPSULE PO ×3 (09:49→18:15)
[2024-03-25] MEDS: CYANOCOBALAMIN TAB 2,000 MCG, CYANOCOBALAMIN TAB 500 MCG 2500 MCG PO (09:49)
[2024-03-25] MEDS: CYANOCOBALAMIN INJ 1,000 MCG/ML VIAL 1000 MCG IM (09:50)
[2024-03-25] MEDS: AMOXICILLIN/CLAVULANATE K 875-125 MG TAB 1 TABLET PO (09:50)
[2024-03-25 09:53] LABS: Hematocrit 36.8 % (37.0-47.0); Hemoglobin 11.4 g/dL (12.0-15.0); Immature Platelet Fraction Pct 6.5 % (0.9-11.2); Mean Corpuscular Hemoglobin 19.6 pg (26-34); Mean Corpuscular Volume 63.2 fl (80-100); Platelet Count Result 237 k/mm3 (150-375); Red Blood Count 5.82 M/mm3 (4.2-5.4)
--- NOTE | 2024-03-25 09:53 | WPDNEUROPN ---
Progress Note: A&P Assessment and Plan (1) Left arm pain: Code(s): M79.602 - Pain in left arm Status: Acute (2) Left leg numbness: Code(s): R20.0 - Anesthesia of skin Status: Acute (3) Left arm numbness: Code(s): R20.0 - Anesthesia of skin Status: Acute (4) Left elbow pain: Code(s): M25.522 - Pain in left elbow Status: Acute Plan Ms. Alvarez is a 58 year old female presenting due to LUE numbness/weakness in the setting of pain. MRI brain was negative for acute stroke. Suspect musculoskeletal etiology. Will obtain MRI cervical spine and lumbar spine to evaluate for radiculopathy. She is quite flat on exam and is refusing to eat or drink so there may also be a functional component to her symptoms as well. Recommend treating pain so that we can get a better sense of whether there is true weakness or if there is just limitation due to pain. If spine imaging is unrevealing, recommend evaluation for musculoskeletal cause of pain. Would also recommend EMG/NCS of all four extremities as outpatient. B12 level was quite low, which may be the culprit as well. Hospitalist is also working her up for DVT. Subjective Date/time seen: 03/25/24 09:53 Interval history: Robel Alvarez is a 58 year old female with no significant past medical history presenting for evaluation of left arm numbness/and weakness. On day prior to admission, patient went to sleep, and when she woke up around 130 AM, she noted spasms/pain in her LUE and was reporting that it was weak as well. In the ER, she had some limitation in range of motion with moving the LUE, which seemed like it was related to pain. Otherwise there were no other deficits. BP ranged from 140-170s systolic. EKG showed sinus rhythm. CT head was unrevealing. CTA brain/carotid was negative and MRI brain did not show any evidence of stroke. Patient is complaining of quite a bit of pain in the left arm and left leg. She reports the pain as mostly in the left elbow. The numbness is from the left elbow down to the hand. She feels that the entire left leg is numb. She denies any shooting pain down her back or buttocks to her leg, although she has chronic lower back pain. She reportedly has had EMG/NCS done about three months ago and was told that she may have carpal tunnel syndrome in the left hand and was told to wear a wrist brace, which did help her symptoms. However the symptoms in the LUE this time are different. Patient has had quite a bit of stress lately due to some family matters. No history of physical abuse. She was tearful during evaluation and brought up the of her who in Nov 2022. Since these symptoms started she has been walking with assistance. No bowel or bladder incontinence. She has had to urinate more frequently in the past day but she was found to have a UTI. Work up has revealed vitamin B12 deficiency (168). She feels that pain is better today. Venous doppler study of LUE is negative. Review of Systems Review of Systems: All systems reviewed & are unremarkable except as noted in HPI and below Exam Const: General: comfortable and no acute distress HENMT: Mouth: Yes moist mucous membranes Eyes: Pupils: Equal, round and reactive pupils present EOM: EOMs intact bilaterally Resp: Effort & Inspection: normal respiratory effort Skin: General skin exam: normal color Neuro: Other: Pupils equal and reactive bilaterally, EOMI, face symmetric, facial sensation intact, tongue protrudes midline. 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 She has numbness from the elbow to the hand. She has antigravity movement in the LUE and LLE today. Sensation is reduced in the left leg compared to the right. She has normal patellar reflexes and absent AJ bilaterally. Language comprehension and fluency intact. Gait deferred. Extrem: General:
[2024-03-25 10:03] LABS: Alanine Aminotransferase 19 U/L (6-35); Albumin Level 4.4 g/dL (3.5-5.1); Alkaline Phosphatase 61 U/L (38-126); Anion Gap 7 mmol/L (4-12); Aspartate Amino Transferase 20 U/L (14-36); Bilirubin,Total 0.7 mg/dL (0.2-1.3); Blood Urea Nitrogen 14 mg/dL (7-17); Calcium 9.2 mg/dL (8.4-10.2); Carbon Dioxide 25 mmol/L (22-30); Chloride 107 mmol/L (98-107); Estimated CRCL calculation 62 ml/min; Estimated Glomerular Filt Rate > 60; Glucose 136 mg/dL (65-110); Potassium 3.4 mmol/L (3.4-5.0); Sodium 139 mmol/L (137-145)
[2024-03-25] MEDS: ACETAMINOPHEN 325 MG TABLET 650 MG PO (11:41)
[2024-03-25 14:00] VITALS: BP 140/83; PULSE 82; RESP 16; TEMP 36.7; O2SAT 98
[2024-03-25 16:00] VITALS: PULSE 82
--- NOTE | 2024-03-25 17:50 | P.DS_ITS ---
DS: Admitting Diagnosis Discharge Date 03/25 Admitting Diagnosis numbness, weakness DS: Discharge Diagnosis Discharge Diagnosis (1) Left arm numbness: Code(s): R20.0 - Anesthesia of skin Status: Acute Assessment and Plan: Following plan for number 1,2,3 * Head/neck CTA negative for vascular abnormality * Brain MRI negative for stoke * NIH 11 scoring for motor drift, facial palsy, partial gaze palsy, limb ataxia, and decreased sensation. * Unclear if limitations are from pain alone * Will obtain MRI of cervical, thoracic, and lumbar spine * Patient reports symptoms for carpal tunnel syndrome that improve with left hand brace. Patient mentions a clot that needs surgery but suspect she means surgery for carpal tunnel release. Given the unclear etiology of her pain will go ahead and rule out DVT to left upper extremity as she does have some swelling. * TSH, lipid panel, hemoglobin A1C pending * Start on oxy 5 mg prn q 4 for pain, Flexeril TID prn, and gabapentin 300 mg TID. * Neurology was consulted, rec's appreciated 03/25: * Patient is found to have a severe vitamin B 12 deficiency which likely explains her myriad of symptoms. * Will start vitamin B12 1000 mcg IM now as well as oral replacement 2500 mcg daily * Suspect related to her vegetarian diet * Intrinsic factor pending * MRI of cervical spine, thoracic, and lumbar spine pending to rule fracture, compression etiology component * Pain control with oxycodone prn q 4 hours (2) Left arm pain: Code(s): M79.602 - Pain in left arm Status: Acute (3) Left-sided weakness: Code(s): R53.1 - Weakness Status: Acute (4) Chest pain: Code(s): R07.9 - Chest pain, unspecified Status: Acute Assessment and Plan: Atypical chest pain to left chest * pain is reproducible with palpation * BNP elevated 4700 * Troponin negative x 1, serial trops ordered * EKG SR rate 63 with possible right ventricular conduction delay and non- specific T wave abnormality * ECHO ordered and pending * Blood pressures ranging 140's-150's 03/25: * ECHO pending completion for today * serial troponin negative (5) UTI (urinary tract infection): Code(s): N39.0 - Urinary tract infection, site not specified Status: Acute Assessment and Plan: U/A concerning for infection and patient has symptom of frequency and urgency. Denies dysuria. * Started on Rocephin * urine culture pending 03/25: * switched to oral Augmentin for a total of 3 days for simple cystitis. EOT 03/26 (6) Headache: Code(s): R51.9 - Headache, unspecified Status: Acute Assessment and Plan: Has chronic headaches at home. Does not take anything for migraines. Usually takes 6-8 Aleve a day. * tylenol prn for headache * [place] on NSAID abuse and daily total intake recommendations (7) Thyroid nodule: Code(s): E04.1 - Nontoxic single thyroid nodule Status: Acute Assessment and Plan: Incidental finding on ultrasound. Patient was already aware of this and states her PCP found it about 1.5 years ago. No work-up pursued by PCP. Will recommend thyroid US as an outpatient.
--- NOTE | 2024-03-25 17:50 | PM.DS ---
DS: Admitting Diagnosis Discharge Date 03/25 Admitting Diagnosis numbness, weakness DS: Discharge Diagnosis Discharge Diagnosis (1) Left arm numbness: Code(s): R20.0 - Anesthesia of skin Status: Acute Assessment and Plan: Following plan for number 1,2,3 Head/neck CTA negative for vascular abnormality Brain MRI negative for stoke NIH 11 scoring for motor drift, facial palsy, partial gaze palsy, limb ataxia, and decreased sensation. Unclear if limitations are from pain alone Will obtain MRI of cervical, thoracic, and lumbar spine Patient reports symptoms for carpal tunnel syndrome that improve with left hand brace. Patient mentions a clot that needs surgery but suspect she means surgery for carpal tunnel release. Given the unclear etiology of her pain will go ahead and rule out DVT to left upper extremity as she does have some swelling. TSH, lipid panel, hemoglobin A1C pending Start on oxy 5 mg prn q 4 for pain, Flexeril TID prn, and gabapentin 300 mg TID. Neurology was consulted, rec's appreciated 03/25: Patient is found to have a severe vitamin B 12 deficiency which likely explains her myriad of symptoms. Will start vitamin B12 1000 mcg IM now as well as oral replacement 2500 mcg daily Suspect related to her vegetarian diet Intrinsic factor pending MRI of cervical spine, thoracic, and lumbar spine pending to rule fracture, compression etiology component Pain control with oxycodone prn q 4 hours (2) Left arm pain: Code(s): M79.602 - Pain in left arm Status: Acute (3) Left-sided weakness: Code(s): R53.1 - Weakness Status: Acute (4) Chest pain: Code(s): R07.9 - Chest pain, unspecified Status: Acute Assessment and Plan: Atypical chest pain to left chest pain is reproducible with palpation BNP elevated 4700 Troponin negative x 1, serial trops ordered EKG SR rate 63 with possible right ventricular conduction delay and non-specific T wave abnormality ECHO ordered and pending Blood pressures ranging 140's-150's 03/25: ECHO pending completion for today serial troponin negative (5) UTI (urinary tract infection): Code(s): N39.0 - Urinary tract infection, site not specified Status: Acute Assessment and Plan: U/A concerning for infection and patient has symptom of frequency and urgency. Denies dysuria. Started on Rocephin urine culture pending 03/25: switched to oral Augmentin for a total of 3 days for simple cystitis. EOT 03/26 (6) Headache: Code(s): R51.9 - Headache, unspecified Status: Acute Assessment and Plan: Has chronic headaches at home. Does not take anything for migraines. Usually takes 6-8 Aleve a day. tylenol prn for headache [place] on NSAID abuse and daily total intake recommendations (7) Thyroid nodule: Code(s): E04.1 - Nontoxic single thyroid nodule Status: Acute Assessment and Plan: Incidental finding on ultrasound. Patient was already aware of this and states her PCP found it about 1.5 years ago. No work-up pursued by PCP. Will recommend thyroid US as an outpatient. TSH 5.150 elevated T3, T4 pending (8) Mastoiditis, chronic: Code(s): H70.10 - Chronic mastoiditis, unspecified ear Status: Acute Assessment and Plan: Left mastoid effusion on CT. Patient reports chronic otitis media with effusion. Denies ear pain Afebrile, no leukocytosis DS: Summary Hospital Course Reason for hospitalization: Vitamin B12 anemia Hospital Course: 58 year old female with a PMH of HTN here with left sided weakness, numbness, and paraesthesia. Work up for stroke and ACS was negative. She was found to have vitamin B12 deficiency. Her symptoms drastically improved a few hours after receiving IM vitamin B12. Other labs and vitals are reviewed and she can be discharged home today. She
[2024-03-27 22:36] LABS: Vitamin B1 10 nmol/L (8-30)
[2024-04-04 17:28] LABS: Intrinsic Factor Blocking Ab NEGATIVE
== END 2024-03-25 19:20 | disposition home or self-care (01) ==
LOC: ANHED 05:16 → ANH3MEDSUR 10:27
PROVIDERS: Nurse Practitioner Acute Care; Admitting Provider Internal Medicine; Emergency Provider Emergency Medicine; Visit Provider General Practice
DX: N39.0 Urinary tract infection, site not specified (principal); R20.0 Anesthesia of skin; M25.522 Pain in left elbow; M79.602 Pain in left arm; E53.8 Deficiency of other specified B group vitamins; R07.89 Other chest pain; R53.1 Weakness; D64.9 Anemia, unspecified; I10 Essential (primary) hypertension; R51.9 Headache, unspecified; E04.1 Nontoxic single thyroid nodule; H70.10 Chronic mastoiditis, unspecified ear
CPT/HCPCS: 36415; 70450; 70496; 70498; 70551; 71045; 72141; 72146; 72148; 80053; 80061; 80307; 81001; 82550; 82607; 82728; 82746; 82948; 83036; 83540; 83550; 83605; 83735; 83880; 84425; 84436; 84443; 84480; 84484; 85025; 85027; 85055; 85610; 85730; 86340; 87077; 87086; 87088; 87186; 93005; 93306; 93971; 96361; 96365; 96372; 96375; 99285; A9270; G0378; J0696; J2270; J3420; J7030; Q9967